=== PATIENT | female | born 1995 | race Hispanic/Latino ===

== ENCOUNTER 2022-06-04 21:02 | Emergency (ER) | payer BC, OTHER ==
[~2022-06-04] VITALS: Ht 152.4 cm; Wt 81.6 kg
[2022-06-04] MEDS ORDERED: IBUPROFEN 600 MG TAB PO STA (23:06)
[2022-06-04] MEDS ORDERED: CYCLOBENZAPRINE HCL 10 MG TAB PO ONE (23:15)
[2022-06-04] MEDS ORDERED: NAPROSYN500 MG PO (23:21)
[2022-06-04] MEDS ORDERED: CYCLOBENZAPRINE10 MG PO (23:23)
[2022-06-04] MEDS ORDERED: CYCLOBENZAPRINE HCL 10 MG TAB ONE (23:29)
[2022-06-04] MEDS ORDERED: IBUPROFEN 600 MG TAB ONE (23:29)
== END 2022-06-04 23:48 | disposition home or self-care (01) ==
LOC: FSED 21:05
DX: S16.1XXA Strain of muscle, fascia and tendon at neck level, initial encounter (principal); V43.53XA Car driver injured in collision with pick-up truck in traffic accident, initial encounter; Y92.488 Other paved roadways as the place of occurrence of the external cause
CPT/HCPCS: 81025; 99283